=== PATIENT | female | born 1980 | race Caucasian/White ===

== ENCOUNTER → 2016-10-24 | Outpatient (CLI) | payer BC ==
--- NOTE | 2016-10-24 22:36 | US ---
EXAMINATION TYPE: US thyroid st tissue head/neck DATE OF EXAM: 10/24/2016 4:38 PM COMPARISON: 11/14/2015 CLINICAL HISTORY: 35-year-old female E04.1 Thyroid Nodule. FOLLOW UP TECHNIQUE: Multiple sonographic images of the thyroid gland were obtained. FINDINGS: GLAND SIZE: Right Lobe: 4.8 x 1.3 x 1.3 cm Left Lobe: 4.6 x 1.5 x 1.4 cm Isthmus Thickness: 0.3 cm NODULES RIGHT: # of nodules measured on right: 3 1. 0.7 X 0.4 x 0.4 cm cystic nodule with internal echogenic focus suggestive of a colloid cyst at t he upper pole with well-defined margins; . This nodule is wider than tall and shows no intranodular vascularity. Prior size: 0.7 x 0.5 x 0.4 cm 2. 0.3 X 0.3 x 0.2 cm probable spongiform nodule at the mid pole with well-defined margins; . This nodule is wider than tall and shows intranodular vascularity. Prior size: 0.3 x 0.3 x 0.3 cm 3. 0.4 X 0.3 x 0.3 cm mixed nodule at the lower pole with well-defined margins; . This nodule is wi suri than tall and shows intranodular vascularity. Prior size: 0.4 x 0.3 x 0.3 cm LEFT: # of nodules measured on left: 2 1. 1.5 X 1.1 x 1.0 cm primarily cystic nodule with internal echogenic foci at the mid pole with wel l-defined margins; . This nodule is round and shows peripheral vascularity. Prior size: 1.3 x 1.1 x 1.0 cm 2. 1.1 X 1.1 x 1.4 cm heterogeneous solid nodule possibly part of or just adjacent to the above-ment ioned complex cystic nodule at the mid/inferior pole with well-defined margins; . This nodule shows intranodular vascularity. Prior size: 1.0 x 1.2 x 1.3 cm ISTHMUS: # of nodules measured in the isthmus: 0 IMPRESSION: Overall stable exam with 3 nodules on the right and 2 nodules on the left. The dominant solid nodule in the left lower pole measures 1.4 x 1.1 cm versus 1.3 x 1.2 cm, previously, not significantly kumar ed.
== END | disposition home or self-care (01) ==
LOC: RADUSWWP 15:42
PROVIDERS: ATTEND Internal Medicine Endocrinology, Diabetes & Metabolism
DX: E04.2 Nontoxic multinodular goiter (principal)
CPT/HCPCS: 76536; 84443

== ENCOUNTER → 2016-10-24 | Outpatient (CLI) | payer BC ==
--- NOTE | 2016-10-25 11:08 | MM ---
Reason for exam: screening (asymptomatic). Baseline mammogram. History: Family history of breast cancer in mother at age 54 and breast cancer in grandmother at age 82. Taking hormonal contraceptives for 12 years. Physical Findings: Nurse did not find any significant physical abnormalities on exam. MG 3D Screening Mammo W/Cad Bilateral CC and MLO view(s) were taken. No persisting abnormality on tomosynthesis images regional round and punctate calcifications anterior left breast are benign. ASSESSMENT: Negative, BI-RAD 1 RECOMMENDATION: Routine screening mammogram of both breasts at age 40. Unless clinical indication to start sooner.
== END | disposition home or self-care (01) ==
LOC: RADMAMWWP 15:45
PROVIDERS: ATTEND Obstetrics & Gynecology
DX: Z12.31 Encounter for screening mammogram for malignant neoplasm of breast (principal)
CPT/HCPCS: 77063; G0202

== ENCOUNTER → 2018-10-21 | Outpatient (CLI) | payer BC ==
--- NOTE | 2018-10-21 13:54 | US ---
EXAMINATION TYPE: US thyroid st tissue head/neck DATE OF EXAM: 10/21/2018 COMPARISON: US CLINICAL HISTORY: E04.2 thyroid nodule-compare to previous. F/U GLAND SIZE: Right Lobe: 4.3 x 1.5 x 1.2 cm Overall Parenchyma: homogenous Left Lobe: 4.6 x 1.6 x 1.6 cm Overall Parenchyma: homogeneous Isthmus Thickness: 0.3 cm NODULES RIGHT: # of nodules measured on right: 3 1. 0.9 X 0.5 x 0.5 cm cystic nodule at the upper pole with well-defined margins; This nodule is w ider than tall and shows no intranodular vascularity. Prior size: 0.7 x 0.4 x 0.4 cm 2. 0.3 X 0.3 x 0.2 cm hypoechoic solid nodule at the mid pole with well-defined margins; This nodul e is wider than tall and shows intranodular vascularity. Prior size: 0.3 x 0.3 x 0.2 cm 3. 0.5 X 0.5 x 0.5 cm isoechoic solid nodule at the lower pole with poorly defined margins; This no dule is wider than tall and shows intranodular vascularity. Prior size: 0.4 x 0.3 x 0.3 cm LEFT: # of nodules measured on left: 1 1. 2.0 X 1.3 x 1.4 cm mixed nodule at the mid pole with well-defined margins; This nodule is wide r than tall and shows intranodular vascularity. Prior size: 2.7 x 1.5 x 1.7 cm This measurement more accurate on 2014 scan than most recent on 2017 scan Bilateral neck scanned, no evidence of lymphadenopathy. Stable nodules on right thyroid and tech felt stable nodule on left when compared to 2014 scan. IMPRESSION: Stable nonspecific nodularity.
== END | disposition home or self-care (01) ==
LOC: RADUSWWP 12:52
PROVIDERS: ATTEND Internal Medicine Endocrinology, Diabetes & Metabolism
DX: E04.2 Nontoxic multinodular goiter (principal)
CPT/HCPCS: 76536; 84443; 86376

== ENCOUNTER → 2020-04-24 | Outpatient (CLI) | payer BC ==
--- NOTE | 2020-04-25 06:54 | US ---
EXAMINATION TYPE: US thyroid st tissue head/neck DATE OF EXAM: 04/24/2020 COMPARISON: US 10/21/2018 CLINICAL HISTORY: E04.1 SINGLE THYROID NODULE. GLAND SIZE: Right Lobe: 4.6 x 1.5 x 1.4 cm Overall Parenchyma: homogenous Left Lobe: 4.9 x 1.7 x 1.6 cm Overall Parenchyma: homogeneous Isthmus Thickness: 0.3 cm NODULES RIGHT: # of nodules measured on right: 2 1. 0.5 X 0.3 x 0.3 cm hypoechoic mixed nodule at the lower pole with well-defined margins; . This nodule is wider than tall and shows intranodular vascularity. Prior size: 0.4 x0.3 x 0.3 cm 2. 1.0 X 0.5 x 0.5 cm hypoechoic cystic nodule at the mid pole with well-defined margins; . This no dule is wider than tall and shows no intranodular vascularity. Prior size: 0.9 x 0.5 x 0.5 cm LEFT: # of nodules measured on left: 1 1. 3.2 X 1.5 x 1.5 cm hypoechoic mixed nodule at the mid pole with well-defined margins; . This no dule is wider than tall and shows intranodular vascularity. Prior size: 2.0 x 1.3 x 1.4 cm ISTHMUS: # of nodules measured in the isthmus: 0 Bilateral neck scanned, no evidence of lymphadenopathy. IMPRESSION: Nonspecific thyroid nodularity seen bilaterally. Enlarging nodule left thyroid lobe.
== END | disposition home or self-care (01) ==
LOC: RADUSWWP 16:12
PROVIDERS: ATTEND Internal Medicine Geriatric Medicine
DX: E04.2 Nontoxic multinodular goiter (principal)
CPT/HCPCS: 76536

== ENCOUNTER → 2020-04-26 | Outpatient (CLI) | payer BC ==
[2020-04-26 08:02] LABS: Basophils % (A) 1 %; Eosinophils # (A) 0.2 k/uL (0-0.7); Eosinophils % (A) 3 %; HCT 43.4 % (34.0-46.0); HGB 14.2 gm/dL (11.4-16.0); Lymphocytes # (A) 2.1 k/uL (1.0-4.8); Lymphocytes % (A) 33 %; MCH 31.3 pg (25.0-35.0); MCHC 32.8 g/dL (31.0-37.0); MCV 95.5 fL (80.0-100.0); Mean Platelet Volume 7.7; Monocytes # (A) 0.3 k/uL (0-1.0); Monocytes % (A) 5 %; Neutrophils # (A) 3.7 k/uL (1.3-7.7); Neutrophils % (A) 58 %; Platelet Count 221 k/uL (150-450); RBC 4.55 m/uL (3.80-5.40); RDW 12.4 % (11.5-15.5); WBC 6.4 k/uL (3.8-10.6)
[2020-04-26 12:37] LABS: African American GFR (CKD) 107.6 (60.0-200.0); Albumin 4.3 g/dL (3.80-4.90); Albumin/Globulin Ratio 2.39 (1.60-3.17); Anion Gap 5.9 mmol/L (4.00-12.00); BUN/Creat Ratio 21.25 Ratio (12.00-20.00); Calcium 9.4 mg/dL (8.7-10.3); Carbon Dioxide 26.1 mmol/L (21.6-31.8); Chol/HDL Ratio 2.52; Globulin 1.8 g/dL (1.6-3.3); LDL Cholesterol,Calculated 81.2 mg/dL (0.0-131.0); Non-African American GFR(CKD) 92.9 (60.0-200.0); Potassium 4.1 mmol/L (3.5-5.5); Total Bilirubin 0.7 mg/dL (0.3-1.2); Total Protein 6.1 g/dL (6.2-8.2); VLDL Calculation 18.8 mg/dL (5.00-40.00)
[2020-04-26 12:45] LABS: T4, Free (Free Thyroxine) 1.2 ng/dL (0.80-1.80)
== END | disposition home or self-care (01) ==
LOC: LABWHC1 07:08
PROVIDERS: ATTEND Internal Medicine Geriatric Medicine
DX: E78.5 Hyperlipidemia, unspecified (principal); E04.1 Nontoxic single thyroid nodule
CPT/HCPCS: 36415; 80053; 80061; 84439; 84443; 85025

== ENCOUNTER → 2021-05-22 | Outpatient (CLI) | payer BC ==
--- NOTE | 2021-05-23 10:29 | MM ---
Reason for exam: screening (asymptomatic). Last mammogram was performed 4 years and 7 months ago. History: Family history of breast cancer in mother at age 54 and breast cancer in grandmother at age 82. Taking hormonal contraceptives for 12 years. Physical Findings: A clinical breast exam by your physician is recommended on an annual basis and results should be correlated with mammographic findings. MG 3D Screening Mammo W/Cad Bilateral CC and MLO view(s) were taken. Prior study comparison: October 24, 2016, bilateral MG 3d screening mammo w/cad. The breast tissue is heterogeneously dense. This may lower the sensitivity of mammography. There is no discrete abnormality. No significant changes when compared with prior studies. ASSESSMENT: Negative, BI-RAD 1 RECOMMENDATION: Routine screening mammogram of both breasts in 1 year.
== END | disposition home or self-care (01) ==
LOC: RADMAMWWP 09:58
PROVIDERS: ATTEND Obstetrics & Gynecology
DX: Z12.31 Encounter for screening mammogram for malignant neoplasm of breast (principal); Z80.3 Family history of malignant neoplasm of breast
CPT/HCPCS: 77063; 77067

== ENCOUNTER → 2022-04-02 | Outpatient (CLI) | payer BC ==
--- NOTE | 2022-04-02 20:35 | US ---
EXAMINATION TYPE: US thyroid st tissue head/neck DATE OF EXAM: 04/02/2022 COMPARISON: US 03/2020 CLINICAL HISTORY: E04.1 THYROID NODULE. THYROID NODULES GLAND SIZE: Right Lobe: 4.4 x 1.6 x 1.3cm Overall Parenchyma: homogenous Left Lobe: 4.9 x 1.8 x 1.5cm Overall Parenchyma: homogeneous Isthmus Thickness: 0.2cm NODULES RIGHT: # of nodules measured on right: 1 1. 0.5 x 0.4 x 0.3cm, lower medial, spongiform, hypoechoic nodule, which is taller than wide, with s mooth margins, without echogenic foci. PREVIOUS NODULE MEASURED IS NO LONGER PRESENT ON TODAY'S EXAM LEFT: # of nodules measured on left: 1 1. 2.4 x 1.3x 1.3cm mid , predominantly cystic, anechoic nodule, which is wider than tall, with ill- defined margins, with echogenic foci. Prior size: 3.2 x 1.5 x 1.5cm ISTHMUS: # of nodules measured in the isthmus: 0 Bilateral neck scanned, no evidence of lymphadenopathy. Homogeneous normal-sized thyroid with stable 2.4 cm mixed solid and cystic left thyroid nodule. Large st 1.0 cm cystic nodule right thyroid lobe prior study is not clearly seen on current study IMPRESSION: As above. No new or enlarging suspicious solid nodules identified.
== END | disposition home or self-care (01) ==
LOC: RADUSWWP 15:45
PROVIDERS: ATTEND Internal Medicine Geriatric Medicine
DX: E04.2 Nontoxic multinodular goiter (principal)
CPT/HCPCS: 76536

== ENCOUNTER 2022-12-30 05:08 | Emergency (ER) | payer BC ==
[2022-12-30 05:24] VITALS: BP 144/88; PULSE 75; RESP 19; TEMP 97.8
[2022-12-30] MEDS ORDERED: IBUPROFEN 600 MG TAB PO STA (06:17)
[2022-12-30] MEDS ORDERED: AMOXIC-POT CLAV 875-125MG 1 EACH TAB PO STA (06:17)
[2022-12-30] MEDS ORDERED: ACET/COD 300 MG/30 MG STARTER PACK 6 TAB BTL PO STA (06:22)
--- NOTE | 2022-12-30 06:24 | ED ---
Animal Bite HPI - General Chief Complaint: Animal Bite Stated Complaint: Swollen right hand - animal bite Time Seen by Provider: 12/30/22 05:56 Source: patient, RN notes reviewed Mode of arrival: ambulatory Limitations: no limitations - History of Present Illness Initial Comments: This is a 42-year-old female who presents to the emergency department for a cat bite. States that she was trying to help her neighbors out by bringing their cat in from outside. The cat subsequently bit her right hand and scratched her right calf. She is not experiencing any pain or swelling to the right calf. She does have a bite to the back of her right hand that is concerning her the most. When she woke up this morning, she said it was red, swollen, and painful. Her tetanus vaccine is up-to-date. States that this is an indoor cat and she is not entirely positive if it is up-to-date on its rabies vaccines, but believes that it is and it is an indoor cat. She is still trying to reach her neighbors to verify this information. Denies any fevers or chills. She has not noticed any redness or swelling going up the arm. She is still able to fully move the hand and fingers. Denies any fevers, chills, sore throat, cough, dyspnea, chest pain, palpitations, abdominal pain, nausea, vomiting, diarrhea, back pain, or headaches. Complaint: animal bite Onset/Timin -: days(s) Right: Hand Animal: cat Description: household pet Mechanism: bite, scratch Associated Symptoms: erythema - Related Data Patient Tetanus UTD: Yes Previous Rx's Medication Instructions Recorded Amoxic-Pot Clav 875-125Mg 1 tab PO Q12HR 10 Days #20 tab 12/30/22 [Augmentin 875-125] Ibuprofen 600 mg PO Q6H PRN #20 tab 12/30/22 Allergies Allergy/AdvReac Type Severity Reaction Status Date / Time No Known Allergies Allergy Verified 12/30/22 05:23 Review of Systems ROS Statement: Those systems with pertinent positive or pertinent negative responses have been documented in the HPI. ROS Other: All systems not noted in ROS Statement are negative. Past Medical History Past Medical History: No Reported History History of Any Multi-Drug Resistant Organisms: None Reported Past Surgical History: No Surgical Hx Reported Past Psychological History: No Psychological Hx Reported Smoking Status: Never smoker Past Alcohol Use History: None Reported Past Drug Use History: None Reported General Exam Limitations: no limitations General appearance: alert, in no apparent distress Head exam: Present: atraumatic, normocephalic, normal inspection Respiratory exam: Present: normal lung sounds bilaterally. Absent: respiratory distress, wheezes, rales, rhonchi, stridor Cardiovascular Exam: Present: regular rate, normal rhythm, normal heart sounds. Absent: systolic murmur, diastolic murmur, rubs, gallop, clicks Extremities exam: Present: other (2 puncture wounds near the right 3rd MCP joint. Erythema and swelling near MCP joints 2, 3, and 4. No areas of firmness to suggest a foreign body. There is no active bleeding. There is no tracking going up the arm or reaching the wrist. Full range of motion of the hand, wrist, and all 5 digits.) Neurological exam: Present: alert, oriented X3, CN II-XII intact Psychiatric exam: Present: normal affect, normal mood Skin exam: Present: other (2 superficial abrasions to the right calf. No surrounding erythema or swelling. No active bleeding.) Course Vital Signs 12/30/22 05:20 Temperature 97.8 F Pulse Rate 75 Respiratory 19 Rate Blood Pressure 144/88 O2 Sat by Pulse 100 Oximetry Medical Decision Making - Medical Decision Making This is a 42-year-old female who presents to the emergency department for a cat bite. Was pt. sent in by a medical professional or institution? @ -No Did you speak to anyone other than the patient for history? @ -No Did you review nursing and triage notes? @ -Yes, and I agree, it is accurate with regards to the patient's symptoms. Were old charts reviewed? @ -No Differential Diagnosis? @ -Not applicable What testing was considered but not performed? (CT, X-rays, U/S, labs)? Why? @ -None What meds were considered but not given? Why? @ -None Did you discuss the management of the patient with other professionals? @ -No Did you reconcile home meds? @ -No Was smoking cessation discussed for >3mins.? @ -No Was critical care preformed (if so, how long)? @ -No Were there social determinants of health that impacted care today? How? (Homelessness, low income, unemployed, alcoholism, drug addiction, transportation, low edu. Level, literacy, decrease access to med. care, long-term, rehab)? @ -No Was there de-escalation of care discussed even if they declined? (Discuss DNR or withdrawal of care, Hospice)? @ -No What co-morbidities impacted this encounter? (DM, HTN, Smoking, COPD, CAD, Cancer, CVA, Hep., AIDS, mental health diagnosis, sleep apnea, morbid obesity)? @ -None Was patient admitted / discharged? @ -Discharged. The bite to the hand is infected, as evidenced by the erythema and swelling. However, this is localized at this time around the right MCP joints. The scratches to the right calf have no surrounding erythema, swelling, or drainage. Patient also has no fevers or tachycardia to suggest systemic involvement. Discussed with the patient, that we can start with outpatient management because the infection is localized and there is no evidence of systemic involvement. However, she needs to watch this very closely. I did outline the affected area with a marker. We discussed that if the redness and swelling start to go past the marked area or she develops any systemic symptoms such as a fever, she needs to return to the emergency department immediately. I did also offer the rabies vaccine, however she declined at this time. Advised she get in contact with her neighbors to verify whether or not the cat is vaccinated. If it is not vaccinated, she should either return to the emergency department or contact her primary care provider to receive the rabies vaccine. Prescription for Augmentin and ibuprofen provided with dosing instructions reviewed. She was given the first dose of Augmentin in the emergency department. Again, very strict return parameters were discussed. Patient expresses understanding. Undiagnosed new problem with uncertain prognosis? @ -None Drug Therapy requiring intensive monitoring for toxicity (Heparin, Nitro, Insulin, Cardizem)? @ -None Were any procedures done? @ -None Diagnosis/symptom? @ -Cat bite Acute, or Chronic, or Acute on Chronic? @ -Acute Uncomplicated (without systemic symptoms) or Complicated (systemic symptoms)? @ -Uncomplicated Side effects of treatment? @ -None Exacerbation, Progression, or Severe Exacerbation] @ -Not applicable Poses a threat to life or bodily function? @ -If the infection progresses, it can become a limb threatening issue. Return precautions reviewed in depth, the patient is instructed to return to the emergency department with any new, worsening, or concerning symptoms. Patient verbalized understanding. This case was discussed in detail with the attending ED physician, Dr. Bell. Presentation, findings, and treatment plan discussed in detail as well. Disposition Clinical Impression: Cat bite Disposition: HOME SELF-CARE Instructions (If sedation given, give patient instructions): Animal Bite (ED) Additional Instructions: Return to the emergency department with any new, worsening, or concerning symptoms. Pay very close attention to the marked line. If the redness and swelling starts to travel past this line or you develop any fevers/chills, return to the emergency department immediately. Take the antibiotic as prescribed for 10 days, with your second dose beginning this evening around 6-7 PM. Alternate with ibuprofen and Tylenol as needed for pain relief. Follow up with your primary care provider in 1-2 days. Prescriptions: Amoxic-Pot Clav 875-125Mg [Augmentin 875-125] 1 tab PO Q12HR 10 Days #20 tab Ibuprofen 600 mg PO Q6H PRN #20 tab PRN Reason: Pain Is patient prescribed a controlled substance at d/c from ED?: No Referrals: Edwin Christian MD [Primary Care Provider] - 1-2 days
== END 2022-12-30 06:33 | disposition home or self-care (01) ==
LOC: EC 05:08
DX: S61.451A Open bite of right hand, initial encounter (principal); S80.811A Abrasion, right lower leg, initial encounter; W55.01XA Bitten by cat, initial encounter
CPT/HCPCS: 99283

== ENCOUNTER 2022-12-30 09:17 | Inpatient (IN) | payer BC ==
[2022-12-30] MEDS ORDERED: KETOROLAC 15 MG/ML 1 ML VIAL IVP STA (09:38)
[2022-12-30] MEDS ORDERED: SODIUM CHLORIDE 0.9% 1,000 ML IV STA (09:39)
--- NOTE | 2022-12-30 10:01 | ED ---
Recheck HPI - General Chief Complaint: Recheck/Abnormal Lab/Rx Stated Complaint: Rt hand cat bite Time Seen by Provider: 12/30/22 09:20 Source: patient, RN notes reviewed Mode of arrival: ambulatory Limitations: no limitations - History of Present Illness Initial Comments: This is a 42-year-old female who presents to the emergency department for a cat bite to the right hand. I evaluated the patient earlier this morning shortly after 6 AM. The swelling was localized to the MCP joints on the right hand at that time and she was discharged home on a course of Augmentin. At this point, she has taken one dose of Augmentin. She returns to the emergency department, because the swelling and pain have progressed. Denies any fevers or chills. Denies any fevers, chills, sore throat, cough, dyspnea, chest pain, palpitations, abdominal pain, nausea, vomiting, diarrhea, back pain, or headaches. MD Complaint: other (Recheck cat bite) - Related Data Home Medications Medication Instructions Recorded Confirmed Amoxic-Pot Clav 875-125Mg 1 tab PO Q12H 12/30/22 12/30/22 [Augmentin 875-125] Cetirizine HCl [Zyrtec] 10 mg PO DAILY 12/30/22 12/30/22 SUMAtriptan succinate [Imitrex] 25 mg PO BID PRN 12/30/22 12/30/22 norethindrone-e.estradioL-iron 1 tab PO HS 12/30/22 12/30/22 [Tamika 24 Fe 1 mg-20 Mcg Tablet] Previous Rx's Medication Instructions Recorded Ibuprofen 600 mg PO Q6H PRN #20 tab 12/30/22 Allergies Allergy/AdvReac Type Severity Reaction Status Date / Time No Known Allergies Allergy Verified 12/30/22 11:22 Review of Systems ROS Statement: Those systems with pertinent positive or pertinent negative responses have been documented in the HPI. ROS Other: All systems not noted in ROS Statement are negative. Past Medical History Past Medical History: No Reported History History of Any Multi-Drug Resistant Organisms: None Reported Past Surgical History: No Surgical Hx Reported Past Psychological History: No Psychological Hx Reported Smoking Status: Never smoker Past Alcohol Use History: None Reported Past Drug Use History: None Reported General Exam Limitations: no limitations General appearance: alert, in no apparent distress Head exam: Present: atraumatic, normocephalic, normal inspection Respiratory exam: Present: normal lung sounds bilaterally. Absent: respiratory distress, wheezes, rales, rhonchi, stridor Cardiovascular Exam: Present: regular rate, normal rhythm, normal heart sounds. Absent: systolic murmur, diastolic murmur, rubs, gallop, clicks Extremities exam: Present: other (Swelling and erythema over the second, third, and fourth MCP joints to the right hand. There is swelling progressing up to the wrist. Limited range of motion of all 5 digits secondary to pain and swelling.) Neurological exam: Present: alert, oriented X3, CN II-XII intact Psychiatric exam: Present: normal affect, normal mood Skin exam: Present: warm, dry, intact, normal color. Absent: rash Course Vital Signs 12/30/22 12/30/22 09:28 14:32 Temperature 98.2 F Pulse Rate 81 83 Respiratory 20 16 Rate Blood Pressure 165/89 141/81 O2 Sat by Pulse 100 97 Oximetry Medical Decision Making - Medical Decision Making This is a 42-year-old female who presents to the emergency department for a cat bite to the right hand. Was pt. sent in by a medical professional or institution? @ -No Did you speak to anyone other than the patient for history? @ -No Did you review nursing and triage notes? @ -Yes, and I agree, it is accurate with regards to the patient's symptoms. Were old charts reviewed? @ -No Differential Diagnosis? @ -Not applicable X-rays interpreted by me (1pt min.)? @ -X-ray of the right hand obtained. My interpretation identifies swelling to the dorsal aspect of the right hand. There are no obvious fractures or foreign bodies. What testing was considered but not performed? (CT, X-rays, U/S, labs)? Why? @ -None What meds were considered but not given? Why? @ -None Did you discuss the management of the patient with other professionals? @ -Yes, Dr. Sutton with [facility] who accepts the patient for admission. Did you reconcile home meds? @ -Yes Was smoking cessation discussed for >3mins.? @ -No Was critical care preformed (if so, how long)? @ -No Were there social determinants of health that impacted care today? How? (Homelessness, low income, unemployed, alcoholism, drug addiction, transportation, low edu. Level, literacy, decrease access to med. care, long-term, rehab)? @ -No Was there de-escalation of care discussed even if they declined? (Discuss DNR or withdrawal of care, Hospice)? @ -No What co-morbidities impacted this encounter? (DM, HTN, Smoking, COPD, CAD, Cancer, CVA, Hep., AIDS, mental health diagnosis, sleep apnea, morbid obesity)? @ -None Was patient admitted / discharged? @ -Admitted. Lab work obtained revealing leukocytosis and elevated inflammatory markers and lactic acid. X-ray of the right hand obtained revealing notable swelling to the dorsal aspect of the right hand. Blood cultures were obtained. The swelling does appear to have progressed since her visit at 6 AM earlier today. She was given a dose of Zosyn in the emergency department. We discussed the option of admission versus discharge home with strict return parameters again. Patient requests to proceed with admission. Patient admitted to medicine with consult placed for orthopedics and infectious disease per the admitting team's request. Patient also started on Unasyn for infectious management. Undiagnosed new problem with uncertain prognosis? @ -None Drug Therapy requiring intensive monitoring for toxicity (Heparin, Nitro, Insulin, Cardizem)? @ -None Were any procedures done? @ -None Diagnosis/symptom? @ -Cat bite to right hand Acute, or Chronic, or Acute on Chronic? @ -Acute Uncomplicated (without systemic symptoms) or Complicated (systemic symptoms)? @ -Complicated Side effects of treatment? @ -None Exacerbation, Progression, or Severe Exacerbation] @ -Not applicable Poses a threat to life or bodily function? @ -Yes This case was discussed in detail with the attending ED physician, Dr. Juarez. Presentation, findings, and treatment plan discussed in detail as well. - Lab Data Result diagrams: 12/30/22 10:38 12/30/22 09:48 Lab Results 12/30/22 12/30/22 12/30/22 Range/Units 09:48 09:48 10:38 WBC 13.5 H (3.8-10.6) k/uL RBC 4.50 (3.80-5.40) m/uL Hgb 14.4 (11.4-16.0) gm/dL Hct 41.3 (34.0-46.0) % MCV 91.7 (80.0-100.0) fL MCH 32.0 (25.0-35.0) pg MCHC 34.9 (31.0-37.0) g/dL RDW 12.6 (11.5-15.5) % Plt Count 172 (150-450) k/uL MPV 8.5 Neutrophils % 88 % Lymphocytes % 7 % Monocytes % 4 % Eosinophils % 1 % Basophils % 0 % Neutrophils # 11.9 H (1.3-7.7) k/uL Lymphocytes # 0.9 L (1.0-4.8) k/uL Monocytes # 0.5 (0-1.0) k/uL Eosinophils # 0.1 (0-0.7) k/uL Basophils # 0.0 (0-0.2) k/uL ESR 6 (0-20) mm/hr Sodium 139 (137-145) mmol/L Potassium 4.1 (3.5-5.1) mmol/L Chloride 106 (98-107) mmol/L Carbon Dioxide 19 L (22-30) mmol/L Anion Gap 14 mmol/L BUN 11 (7-17) mg/dL Creatinine 0.69 (0.52-1.04) mg/dL Est GFR (CKD-EPI)AfAm >90 (>60 ml/min/1.73 sqM) Est GFR (CKD-EPI)NonAf >90 (>60 ml/min/1.73 sqM) Glucose 98 (74-99) mg/dL Lactic Ac Sepsis Rflx Plasma Lactic Acid Bret 2.2 H* (0.7-2.0) mmol/L Calcium 9.5 (8.4-10.2) mg/dL Total Bilirubin 0.8 (0.2-1.3) mg/dL AST 27 (14-36) U/L ALT 21 (4-34) U/L Alkaline Phosphatase 46 (38-126) U/L C-Reactive Protein 2.3 H (<1.0) mg/dL Total Protein 7.5 (6.3-8.2) g/dL Albumin 4.6 (3.5-5.0) g/dL 12/30/22 Range/Units 10:45 WBC (3.8-10.6) k/uL RBC (3.80-5.40) m/uL Hgb (11.4-16.0) gm/dL Hct (34.0-46.0) % MCV (80.0-100.0) fL MCH (25.0-35.0) pg MCHC (31.0-37.0) g/dL RDW (11.5-15.5) % Plt Count (150-450) k/uL MPV Neutrophils % % Lymphocytes % % Monocytes % % Eosinophils % % Basophils % % Neutrophils # (1.3-7.7) k/uL Lymphocytes # (1.0-4.8) k/uL Monocytes # (0-1.0) k/uL Eosinophils # (0-0.7) k/uL Basophils # (0-0.2) k/uL ESR (0-20) mm/hr Sodium (137-145) mmol/L Potassium (3.5-5.1) mmol/L Chloride (98-107) mmol/L Carbon Dioxide (22-30) mmol/L Anion Gap mmol/L BUN (7-17) mg/dL Creatinine (0.52-1.04) mg/dL Est GFR (CKD-EPI)AfAm (>60 ml/min/1.73 sqM) Est GFR (CKD-EPI)NonAf (>60 ml/min/1.73 sqM) Glucose (74-99) mg/dL Lactic Ac Sepsis Rflx Y Plasma Lactic Acid Bret (0.7-2.0) mmol/L Calcium (8.4-10.2) mg/dL Total Bilirubin (0.2-1.3) mg/dL AST (14-36) U/L ALT (4-34) U/L Alkaline Phosphatase (38-126) U/L C-Reactive Protein (<1.0) mg/dL Total Protein (6.3-8.2) g/dL Albumin (3.5-5.0) g/dL - Radiology Data Radiology results: report reviewed, image reviewed Disposition Clinical Impression: Cat bite of right hand Disposition: ADMITTED IP TO THIS HOSP
--- NOTE | 2022-12-30 10:27 | XR ---
EXAMINATION TYPE: XR hand complete RT DATE OF EXAM: 12/30/2022 COMPARISON: NONE HISTORY: 42-year-old female with cat bite TECHNIQUE: 3 views FINDINGS: Prominent dorsal sided soft tissue swelling. No retained radiopaque foreign body. No acute fracture, subluxation, or dislocation. IMPRESSION: Prominent dorsal sided soft tissue swelling. No acute osseous abnormality seen.
[2022-12-30 10:28] LABS: ALT 21 U/L (4-34); AST 27 U/L (14-36); African American GFR (CKD) >90 (>60 ml/min/1.73 sqM); Albumin 4.6 g/dL (3.5-5.0); Alkaline Phosphatase 46 U/L (38-126); Anion Gap 14 mmol/L; Blood Urea Nitrogen 11 mg/dL (7-17); Calcium 9.5 mg/dL (8.4-10.2); Carbon Dioxide 19 mmol/L (22-30); Chloride 106 mmol/L (98-107); Glucose 98 mg/dL (74-99); Non-African American GFR(CKD) >90 (>60 ml/min/1.73 sqM); Potassium 4.1 mmol/L (3.5-5.1); Sodium 139 mmol/L (137-145); Total Bilirubin 0.8 mg/dL (0.2-1.3); Total Protein 7.5 g/dL (6.3-8.2)
[2022-12-30 10:42] LABS: C Reactive Protein 2.3 mg/dL (<1.0)
[2022-12-30 10:49] LABS: Basophils % (A) 0 %; Eosinophils # (A) 0.1 k/uL (0-0.7); Eosinophils % (A) 1 %; HCT 41.3 % (34.0-46.0); HGB 14.4 gm/dL (11.4-16.0); Lymphocytes # (A) 0.9 k/uL (1.0-4.8); Lymphocytes % (A) 7 %; MCHC 34.9 g/dL (31.0-37.0); MCV 91.7 fL (80.0-100.0); Mean Platelet Volume 8.5; Monocytes # (A) 0.5 k/uL (0-1.0); Monocytes % (A) 4 %; Neutrophils # (A) 11.9 k/uL (1.3-7.7); Neutrophils % (A) 88 %; Platelet Count 172 k/uL (150-450); RDW 12.6 % (11.5-15.5); WBC 13.5 k/uL (3.8-10.6)
[2022-12-30] MEDS ORDERED: PIPERACILLIN-TAZOBACTAM 3.375 GM in SODIUM CHLORIDE 0.9% 100 ML IVPB STA (10:58)
[2022-12-30 14:28] LABS: Erythrocyte Sedimentation Rate 6 mm/hr (0-20)
[2022-12-30] MEDS ORDERED: MORPHINE SULFATE 2 MG/ML SYRINGE IV PRN (14:47)
[2022-12-30] MEDS ORDERED: ONDANSETRON 4 MG/2 ML VIAL IVP PRN (14:47)
[2022-12-30] MEDS ORDERED: HYDROcodone/APAP 5-325MG 1 EACH TAB PO PRN (14:47)
[2022-12-30] MEDS ORDERED: NALOXONE 0.4 MG/ML 1 ML VIAL IV PRN (14:47)
[2022-12-30] MEDS ORDERED: ACETAMINOPHEN TAB 325 MG TAB PO PRN (14:47)
[2022-12-30] MEDS ORDERED: PIPERACILLIN-TAZOBACTAM 3.375 GM in SODIUM CHLORIDE 0.9% 100 ML IVPB SCH (16:00)
--- NOTE | 2022-12-30 16:49 | P.CNOR ---
History of Present Illness - [facility] Consult date: 12/30/22 Consult reason: other (Right hand cat bite) History of present illness: The patient is a 42 y/o previously healthy female who presents to the emergency department for a cat bite to the right hand. She states that she was trying to help her neighbors out by bringing their cat in from outside yesterday. The cat bit her right hand and scratched her right calf. She came the ER last night and was sent home with oral antibiotics. The patient woke up this morning and noticed increased swelling and redness in the hand. She decided to come back to the ER for reevaluation. She is being admitted for IV antibiotics and orthopedic evaluation. Infectious disease has been consulted as well. She denies fever and chills. There is swelling and warmth to the hand. No drainage or purulence. Review of Systems Constitutional: Denies chills, Denies fatigue, Denies fever Cardiovascular: Denies chest pain, Denies shortness of breath Respiratory: Denies cough Gastrointestinal: Denies diarrhea, Denies nausea, Denies vomiting Musculoskeletal: right: hand pain, hand stiffness, hand swelling Past Medical History Past Medical History: No Reported History History of Any Multi-Drug Resistant Organisms: None Reported Past Surgical History: No Surgical Hx Reported Past Psychological History: No Psychological Hx Reported Smoking Status: Never smoker Past Alcohol Use History: None Reported Past Drug Use History: None Reported Medications and Allergies Home Medications Medication Instructions Recorded Confirmed Type Amoxic-Pot Clav 875-125Mg 1 tab PO Q12H 12/30/22 12/30/22 History [Augmentin 875-125] Cetirizine HCl [Zyrtec] 10 mg PO DAILY 12/30/22 12/30/22 History Ibuprofen 600 mg PO Q6H PRN #20 tab 12/30/22 12/30/22 Rx SUMAtriptan succinate [Imitrex] 25 mg PO BID PRN 12/30/22 12/30/22 History norethindrone-e.estradioL-iron 1 tab PO HS 12/30/22 12/30/22 History [Tamika 24 Fe 1 mg-20 Mcg Tablet] Allergies Allergy/AdvReac Type Severity Reaction Status Date / Time No Known Allergies Allergy Verified 12/30/22 11:22 Physical Examination The patient is a 42 y/o female in no acute distress. She is alerted and oriented x3. Exam of the right hand reveals swelling and erythema to the dorsal aspect of the hand, worse in the area of the right middle finger MP joint. There are bite madrid to the radial and ulnar aspect of the right middle finger MP joint. There are other smaller areas of bites and scratches there appear benign at this time. There is stiffness to the fingers and mild tenderness to the dorsum of the hand. No drainage or fluctuance/fluid collection noted. No abscess suspected. No proximal red streaking. There is an area marked previously and her erythema has receded since the area was marked. Neurological and circulatory status is intact. Results x-rays of the right hand reveal soft tissue swelling to the dorsal aspect of the hand. - Labs Labs: Abnormal Lab Results - Last 24 Hours (Table) 12/30/22 12/30/22 12/30/22 Range/Units 09:48 09:48 10:38 WBC 13.5 H (3.8-10.6) k/uL Neutrophils # 11.9 H (1.3-7.7) k/uL Lymphocytes # 0.9 L (1.0-4.8) k/uL Carbon Dioxide 19 L (22-30) mmol/L Plasma Lactic Acid Bret 2.2 H* (0.7-2.0) mmol/L C-Reactive Protein 2.3 H (<1.0) mg/dL H & H 12/30/22 Range/Units 10:38 Hgb 14.4 (11.4-16.0) gm/dL Hct 41.3 (34.0-46.0) % Result Diagrams: 12/30/22 10:38 12/30/22 09:48 Assessment and Plan (1) Cat bite of right hand Current Visit: Yes Status: Acute Code(s): S61.451A - OPEN BITE OF RIGHT HAND, INITIAL ENCOUNTER; W55.01XA - BITTEN BY CAT, INITIAL ENCOUNTER SNOMED Co de(s): [id number] Plan: The clinical and x-ray findings were discussed with the patient. The case was discussed with Dr. Marrero. She will continue IV antibiotics per internal medicine and infectious disease. No fluid collection was found and no surgical intervention is needed at this time. I encouraged gentle ROM of the fingers as tolerated. We will continue monitor the patient closely.
[2022-12-30] MEDS: AMPICILLIN-SULBACTAM 3 GM in SODIUM CHLORIDE 0.9% 100 ML IVPB SCH (19:16)
[2022-12-30] MEDS: IBUPROFEN 400 MG TAB PO PRN (19:22)
[2022-12-30] MEDS: NORETHINDRONE E ESTRADIOL IRON PO SCH (20:03)
[2022-12-30] MEDS: KETOROLAC 15 MG/ML 1 ML VIAL IVP PRN (22:58)
--- NOTE | 2022-12-30 23:35 | HP ---
HISTORY AND PHYSICAL CHIEF COMPLAINT: Cat bite. HISTORY OF PRESENT ILLNESS: This is a 42-year-old woman with a past medical history of no significant medical illness, was bitten by a neighbor's cat yesterday while the patient was trying to get the cat back. The bite was on the metacarpophalangeal area of the right hand. The patient had developed pain and swelling despite taking Augmentin. The patient came to [facility] and was admitted for further evaluation and treatment. There is no history of any fever, rigors, or chills at this time. The hand x-ray was unremarkable. PAST MEDICAL HISTORY: No significant cardiorespiratory illness. MEDICATIONS: Home medications are reviewed include Imitrex, doses and rest of medications noted. ALLERGIES: None. FAMILY HISTORY: No history of heart disease or strokes in the family. 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 No history of smoking or alcohol. REVIEW OF SYSTEMS: A 14-point review is negative except as mentioned earlier. PHYSICAL EXAMINATION: VITAL SIGNS: Pulse is 81, blood pressure 160/89, respirations 20. HEENT: Conjunctivae normal. NECK: No jugular venous distention. CARDIOVASCULAR: S1, S2. ABDOMEN: Soft, nontender. LEGS: No edema, no swelling. NERVOUS SYSTEM: No focal deficits. EXTREMITIES: Right hand, swelling and painful, limitation of movement of the 2nd, 3rd and 4th fingers present, tenderness and bite madrid present on the dorsum of the right middle hand. SKIN: As mentioned. LABORATORY DATA: Noted. WBC 13.5. ASSESSMENT: 1. Cat bite with severe infection cellulitis of the right hand. 2. Severe pain. 3. Failure of outpatient treatment. 4. Elevated lactic acid. RECOMMENDATIONS: This 42-year-old woman presented with multiple complex medical issues. At this time, I will recommend to continue the current management, continue symptomatic treatment. Otherwise, continue IV fluids, broad-spectrum IV antibiotics. Infectious Disease and orthopedic evaluations. Prognosis guarded. Further recommendations to follow. See orders for further details. MMODL / IJN: [id number] /
[2022-12-31] MEDS: AMPICILLIN-SULBACTAM 3 GM in SODIUM CHLORIDE 0.9% 100 ML IVPB SCH ×4 (00:47→20:44)
[2022-12-31 09:06] LABS: Basophils # (A) 0.03 X 10*3/uL (0.00-0.10); Basophils % (A) 0.3 %; Eosinophils # (A) 0.07 X 10*3/uL (0.04-0.35); Eosinophils % (A) 0.7 %; HGB 13.7 g/dL (12.0-15.0); Immature Grans, Automated 0.3 %; Lymphocytes # (A) 1.66 X 10*3/uL (0.90-5.00); Lymphocytes % (A) 15.9 %; MCH 30.9 pg (27.0-32.0); MCHC 32.6 g/dL (32.0-37.0); MCV 94.8 fL (80.0-97.0); Mean Platelet Volume 11.2 fL (9.5-12.2); Monocytes % (A) 6.7 %; NRBC Per 100 WBC 0 /100 WBCS (0.0-0.0); Neutrophils # (A) 7.94 X 10*3/uL (1.80-7.70); Neutrophils % (A) 76.1 %; Platelet Count 213 X 10*3/uL (140-440); RBC 4.43 X 10*6/uL (4.10-5.20); RDW 12.5 % (11.5-14.5); WBC 10.43 X 10*3/uL (4.50-10.00)
[2022-12-31] MEDS: LORATADINE 10 MG TAB PO SCH (09:07)
[2022-12-31] MEDS: KETOROLAC 15 MG/ML 1 ML VIAL IVP PRN (09:15)
[2022-12-31] MEDS: IBUPROFEN 400 MG TAB PO PRN (09:25)
[2022-12-31 09:27] LABS: African American GFR (CKD) 105.4 (60.0-200.0); Anion Gap 11.8 mmol/L (10.00-18.00); BUN/Creat Ratio 14.13 Ratio (12.00-20.00); Blood Urea Nitrogen 11.3 mg/dL (9.0-27.0); Calcium 8.9 mg/dL (8.7-10.3); Carbon Dioxide 23.2 mmol/L (20.0-27.5); Non-African American GFR(CKD) 90.9 (60.0-200.0); Potassium 4.1 mmol/L (3.5-5.5)
--- NOTE | 2022-12-31 11:43 | P.PN ---
Subjective Progress Note Date: 12/31/22 This patient is a 42-year-old female that orthopedic surgery is following for cellulitis of the right hand following a cat bite. Patient is examined bedside this morning. She states she believes her right hand pain is worse. She notes increased swelling and pain in the hand with radiation to the wrist. The patient is currently receiving IV Unasyn. Patient states she otherwise feels well and denies fevers, chills, nausea, vomiting. Objective - Vital Signs Vital signs: Vital Signs Temp 98.5 F 12/31/22 06:46 Pulse 66 12/31/22 06:46 Resp 16 12/31/22 06:46 BP 111/71 12/31/22 06:46 Pulse Ox 97 12/31/22 06:46 FiO2 Intake & Output 12/30/22 12/31/22 12/31/22 18:59 06:59 18:59 Intake Total 600 Balance 600 Weight 64.864 kg 64.864 kg Intake: Intake, IV Titration 100 Amount Ampicillin-Sulbactam 3 gm 100 In Sodium Chloride 0.9% 100 ml @ 200 mls/hr IVPB Q6H [facility] Rx#:[id number] Oral 500 Other: Voiding Method Toilet - Exam On examination, patient is sitting up in bed in no acute distress. She is alert and orientated 3. On inspection of the right hand, there is diffuse swelling and erythema to the dorsal aspect of the hand. There are 2 bite madrid at the dorsal right middle finger MCP joint. There is no drainage. There is no area of fluctuance or fluid collection noted on exam. There is swelling and stiffness into the fingers, although there is minimal pain with passive range of motion of the fingers and thumb. No pain with passive range of motion of the wrist or elbow. Neurological and circulatory status is intact. - Labs CBC & Chem 7: 12/31/22 04:04 12/31/22 04:04 Labs: Abnormal Lab Results - Last 24 Hours (Table) 12/31/22 Range/Units 04:04 WBC 10.43 H (4.50-10.00) X 10*3/uL Neutrophils # 7.94 H (1.80-7.70) X 10*3/uL Assessment and Plan Assessment: Right hand cellulitis status-post cat bite Plan: - Patient was discussed with Dr. Braaksma. Due to her worsening symptoms overnight, recommend CT scan of the right hand with contrast to rule-out abscess. - IV antibiotics per infectious disease. - Further recommendations following CT scan.
--- NOTE | 2022-12-31 12:00 | CT ---
EXAMINATION TYPE: CT hand RT w con CT DLP: 144.6 mGycm, Automated exposure control for dose reduction was used. DATE OF EXAM: 12/31/2022 11:50 AM COMPARISON: Right hand radiograph for 323 CLINICAL INDICATION:Female, 42 years old with history of cat bite; PHH, right hand pain and swelling following dog bite TECHNIQUE: Axial images were obtained of the right hand after the uneventful administration 100 cc of Isovue-300 intravenously. Additional coronal and sagittal reformatted images and soft tissue and whitley ne window were obtained for review. 3-D reconstruction was created on a separate workstation. FINDINGS: There is no evidence of fracture, subluxation, or dislocation. No osseous erosions. No sign ificant joint effusion identified. There is moderate soft tissue edema of the dorsum of the hand over lying the carpals and metacarpals without organized fluid collection. Vasculature appears patent. No focal muscular atrophy. No radiopaque foreign body identified. IMPRESSION: Moderate soft tissue edema of the dorsum of the hand without evidence of abscess. No radi opaque foreign body identified or osseous erosions. No acute fracture or dislocation.
[2022-12-31] MEDS: SUMAtriptan succinate 25 MG TAB PO PRN ×2 (13:12→21:33)
[2022-12-31] MEDS ORDERED: ALPRAZolam 0.25 MG TAB PO PRN (13:16)
[2022-12-31] MEDS ORDERED: HYDROmorphone 0.5 MG/0.5 ML SYRINGE IVP PRN (13:16)
--- NOTE | 2022-12-31 13:40 | P.PN ---
Progress Note - Text Progress Note Date: 12/31/22 The patient is presently admitted to with cellulitis to her hand following a cat bite. Orthopaedics was consulted in regards to her hand infection. 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 Our office's hand surgeon, Dr. Frank, is out of town for the week. I am a fellowship-trained total hip and knee surgeon and not a hand surgeon. Since the family has made the request for a hand surgeon I will sign off at this time. I would recommend consulting Dr. Nicholson, a fellowship trained hand surgeon for [facility]. If Dr. Nicholson is unavailable to see the patient, I would recommend transferring the patient to a facility where a hand surgeon is available. We will sign off at this time.
--- NOTE | 2022-12-31 14:02 | PN ---
PROGRESS NOTE DATE OF SERVICE: 12/31/2022 SUBJECTIVE: This 42-year-old woman was admitted with a cat bite on the right hand, had some increased swelling today. CAT scan of the hand showed soft tissue edema without any evidence of abscess. OBJECTIVE: VITAL SIGNS: Pulse is 66, blood pressure 111/70, respirations 16. CHEST: Clear to auscultation. CARDIOVASCULAR: S1, S2 muffled. ABDOMEN: Soft. EXTREMITIES: Right arm pain and swelling and tenderness with erythema extending up the arm also present. LABORATORY DATA: Noted. Lactic acid is normal. ASSESSMENT: 1. Cat bite with acute severe cellulitis of the right hand. 2. Severe pain. 3. Failure of outpatient treatment. 4. Elevated lactic acid, improved. RECOMMENDATIONS: Recommend to continue current management, continue symptomatic treatment. Continue with broad-spectrum IV antibiotics. Continue the cultures. Infectious Disease and Hand surgery/orthopedic evaluation. Guarded prognosis. Further recommendations to follow. MMODL / IJN: [id number] /
[2022-12-31] MEDS: PANTOPRAZOLE 40 MG/10 ML VIAL IVP SCH (14:48)
--- NOTE | 2022-12-31 17:17 | P.CNOR ---
History of Present Illness - [facility] Consult date: 12/31/22 Consult reason: other (Right hand cat bite) History of present illness: This is a 42-year-old female who presented to the emergency department initially with complaints of right hand swelling after she was bit on the dorsal aspect of her right hand by her neighbors cat on 12/29/2022. She was seen katy trinidad in the emergency department and was placed on oral antibiotics and sent home. She then returned the next day due to increased swelling and pain. She was admitted for IV antibiotics. She states that her swelling has gone down in the last 24 hours and she has noticed improvement in her pain. She still complains of some stiffness and inability to make a full fist. She denies any paresthesias. She denies any prior injury to this hand in the past. Past Medical History Past Medical History: No Reported History History of Any Multi-Drug Resistant Organisms: None Reported Past Surgical History: No Surgical Hx Reported Past Psychological History: No Psychological Hx Reported Smoking Status: Never smoker Past Alcohol Use History: None Reported Past Drug Use History: None Reported Medications and Allergies Home Medications Medication Instructions Recorded Confirmed Type Amoxic-Pot Clav 875-125Mg 1 tab PO Q12H 12/30/22 12/30/22 History [Augmentin 875-125] Cetirizine HCl [Zyrtec] 10 mg PO DAILY 12/30/22 12/30/22 History Ibuprofen 600 mg PO Q6H PRN #20 tab 12/30/22 12/30/22 Rx SUMAtriptan succinate [Imitrex] 25 mg PO BID PRN 12/30/22 12/30/22 History norethindrone-e.estradioL-iron 1 tab PO HS 12/30/22 12/30/22 History [Tamika 24 Fe 1 mg-20 Mcg Tablet] Allergies Allergy/AdvReac Type Severity Reaction Status Date / Time No Known Allergies Allergy Verified 12/30/22 11:22 Physical Examination Osteopathic Statement: *. No significant issues noted on an osteopathic structural exam other than those noted in the History and Physical/Consult. Results - Labs Labs: Abnormal Lab Results - Last 24 Hours (Table) 12/31/22 Range/Units 04:04 WBC 10.43 H (4.50-10.00) X 10*3/uL Neutrophils # 7.94 H (1.80-7.70) X 10*3/uL Microbiology - Last 24 Hours (Table) 12/30/22 09:48 Blood Culture - Preliminary Blood No Growth after 24 hours 12/30/22 09:48 Blood Culture - Preliminary Blood No Growth after 24 hours H & H 12/30/22 12/31/22 Range/Units 10:38 04:04 Hgb 14.4 13.7 (11.4-16.0) gm/dL Hct 41.3 42.0 (34.0-46.0) % Result Diagrams: 12/31/22 04:04 12/31/22 04:04 Assessment and Plan Assessment: Physical Exam: RUE: AIN/PIN/Radial/Ulnar/Median motor intact. Radial/Ulnar/Median SILT. 2+/4 Radial/Ulnar pulses palpated. 5/5 APB, 5/5 FDI. Negative Finkelsteins, negative CMC grind, negative Durkan's compression. Redness/ swelling and warmth present over dorsal hand. 2 puncture wounds located at the radial and ulnar portions of the metacarpal head, no direct puncture wound over the MCP joint of the middle finger. Passive MCP ROM 0-115 of all digits without pain. NTTP over volar palm/flexor tendon sheath. No fusiform swelling or pain with passive extension of the fingers. Able to make a partial fist with minimal pain. Assessment: 1.) Right hand cat bite with surrounding dorsal hand cellulitis. Plan: I was able to see and examine the patient myself. Currently there are no signs of abscess on physical exam or CT of the hand. She has no signs of pyogenic flexor tenosynovitis and the swelling/cellulitic changes are mainly located at the dorsal aspect of the hand and slowly improving. There are no signs of septic arthritis in the MCP joint. I recommend continued IV antibiotics over the next 24 hours. If she continues to respond well to antibiotics we discussed she can be discharged on oral antibiotic therapy and follow up in office in 7-10 days. The patient and who was at bedside during the patient encounter were agreeable with this plan of action. -Mayank Nicholson Orthopedic Hand/Upper Extremity Surgeon
[2022-12-31] MEDS: KETOROLAC 15 MG/ML 1 ML VIAL IVP SCH (19:15)
[2022-12-31] MEDS: NORETHINDRONE E ESTRADIOL IRON PO SCH (20:44)
--- NOTE | 2022-12-31 23:08 | P.CONS ---
History of Present Illness - Reason for Consult Consult date: 12/31/22 Cat bite to right hand Requesting physician: Vandana Avalos - Chief Complaint Right hand swelling and redness x one day - History of Present Illness Patient is a 42-year-old female with no significant past medical history presenting to the ER yesterday morning for evaluation of right hand pain swelling and redness patient's symptoms started around 6 in the morning and apparently the patient has been bitten by her cat the night before on the right hand patient noticed to have increasing swelling and redness on the dorsal aspect of the right hand extending to the right forearm and elbow area patient was describing the pain to be throbbing intensity is almost 7-8 out of 10 radiation with associated swelling redness no open wound or any drainage patient on presentation to the hospital was afebrile and no fever has been recorded subsequently patient did have white count of 13.5 with a left shift kidney function has been normal liver exams are normal lactic acid was 2.2 patient did have a x-ray of the hand prominent dorsal sided soft tissue swelling no acute bony abnormality patient was started on Unasyn infectious disease was consulted for further management of antibiotic therapy patient has been evaluated by orthopedics and CT of the head has been ordered which is currently pending Review of Systems Positive point has been mentioned in the HPI rest of the systems are negative Past Medical History Past Medical History: No Reported History History of Any Multi-Drug Resistant Organisms: None Reported Past Surgical History: No Surgical Hx Reported Past Psychological History: No Psychological Hx Reported Smoking Status: Never smoker Past Alcohol Use History: None Reported Past Drug Use History: None Reported Medications and Allergies Home Medications Medication Instructions Recorded Confirmed Type Amoxic-Pot Clav 875-125Mg 1 tab PO Q12H 12/30/22 12/30/22 History [Augmentin 875-125] Cetirizine HCl [Zyrtec] 10 mg PO DAILY 12/30/22 12/30/22 History Ibuprofen 600 mg PO Q6H PRN #20 tab 12/30/22 12/30/22 Rx SUMAtriptan succinate [Imitrex] 25 mg PO BID PRN 12/30/22 12/30/22 History norethindrone-e.estradioL-iron 1 tab PO HS 12/30/22 12/30/22 History [Tamika 24 Fe 1 mg-20 Mcg Tablet] Allergies Allergy/AdvReac Type Severity Reaction Status Date / Time No Known Allergies Allergy Verified 12/30/22 11:22 Physical Exam Vitals: Vital Signs Temp Pulse Pulse Resp BP BP Pulse Ox 12/31/22 06:46 98.5 F 66 16 111/71 97 12/31/22 01:39 16 12/31/22 00:46 98.2 F 73 16 106/65 98 12/30/22 19:25 75 18 140/80 98 12/30/22 14:32 83 16 141/81 97 Intake and Output 12/30/22 12/31/22 12/31/22 22:59 06:59 14:59 Intake Total 100 500 Balance 100 500 Intake: Intake, IV Titration 100 Amount Ampicillin-Sulbactam 3 gm 100 In Sodium Chloride 0.9% 100 ml @ 200 mls/hr IVPB Q6H [facility] Rx#:[id number] Oral 500 Other: Voiding Method Toilet Weight 64.864 kg GENERAL DESCRIPTION: Middle-aged female lying in bed, no distress. No tachypnea or accessory muscle of respiration use. HEENT: Shows Pallor , no scleral icterus. Oral mucous membrane is dry. NECK: Trachea central, no thyromegaly. LUNGS: Unlabored breathing. Clear to auscultation anteriorly. No wheeze or crackle. HEART: S1, S2, regular rate and rhythm. No loud murmur ABDOMEN: Soft, no tenderness , guarding or rigidity, no organomegaly EXTREMITIES: Right hand dorsum did have swelling and redness tender and warm to touch no open wound or drainage SKIN: No rash, no masses palpable. NEUROLOGICAL: The patient is awake, alert, oriented x3, mood and affect normal. 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 Current Visit: Yes Status: Acute Code(s): L03.90 - CELLULITIS, UNSPECIFIED; A28.0 - PASTEURELLOSIS; W55.01XA - BITTEN BY CAT, INITIAL ENCOUNTER SNOMED Code(s): 642368669 Plan: 1patient was in the hospital with right hand cat bite cellulitis in this patient refused swelling redness of the right hand with some extension to the dorsal aspect of the right hand in the elbow area likely representing lymphangitis and will need to cover for the polymicrobial maeve of the Mouth clinically not behaving as an abscess awaiting CT 2-patient to continue with Unasyn 3 g every 6 hours Patient and has multiple questions concerns were answered in layman term We will follow on clinical condition and cultures to further adjust medication if needed Thank you for this consultation we will follow the patient along with you Time with Patient: Greater than 30
[2023-01-01] MEDS: KETOROLAC 15 MG/ML 1 ML VIAL IVP SCH ×4 (00:48→18:14)
[2023-01-01] MEDS: AMPICILLIN-SULBACTAM 3 GM in SODIUM CHLORIDE 0.9% 100 ML IVPB SCH ×4 (00:50→21:06)
[2023-01-01 07:52] LABS: African American GFR (CKD) >90 (>60 ml/min/1.73 sqM); Anion Gap 6 mmol/L; Blood Urea Nitrogen 9 mg/dL (7-17); Calcium 8.6 mg/dL (8.4-10.2); Carbon Dioxide 27 mmol/L (22-30); Chloride 108 mmol/L (98-107); Glucose 94 mg/dL (74-99); Non-African American GFR(CKD) >90 (>60 ml/min/1.73 sqM); Potassium 4.1 mmol/L (3.5-5.1); Sodium 141 mmol/L (137-145)
[2023-01-01 07:55] LABS: Basophils % (A) 0 %; Eosinophils # (A) 0.1 k/uL (0-0.7); Eosinophils % (A) 2 %; HCT 39.8 % (34.0-46.0); HGB 13.3 gm/dL (11.4-16.0); Lymphocytes # (A) 1.5 k/uL (1.0-4.8); Lymphocytes % (A) 19 %; MCH 31.2 pg (25.0-35.0); MCHC 33.5 g/dL (31.0-37.0); MCV 93.2 fL (80.0-100.0); Monocytes # (A) 0.4 k/uL (0-1.0); Monocytes % (A) 5 %; Neutrophils # (A) 5.6 k/uL (1.3-7.7); Neutrophils % (A) 72 %; Platelet Count 185 k/uL (150-450); RBC 4.27 m/uL (3.80-5.40); RDW 12.1 % (11.5-15.5); WBC 7.8 k/uL (3.8-10.6)
[2023-01-01] MEDS: LORATADINE 10 MG TAB PO SCH (08:13)
[2023-01-01] MEDS: PANTOPRAZOLE 40 MG/10 ML VIAL IVP SCH (08:21)
--- NOTE | 2023-01-01 10:54 | PN ---
PROGRESS NOTE DATE OF SERVICE: 01/01/2023 SUBJECTIVE: This is a 42-year-old woman who was admitted with a cat bite and severe cellulitis, is being closely monitored. The swelling and pain are improving. Hand surgeon as well as Infectious Disease saw the patient. Cultures are negative so far. OBJECTIVE: VITAL SIGNS: Pulse is 69, blood pressure 103/69, respirations 17. CHEST: Clear to auscultation. CARDIOVASCULAR: S1, S2. ABDOMEN: Soft. EXTREMITIES: Right hand swelling and tenderness and some limitation of movements, which has much improved. LABORATORY DATA: Reviewed. ASSESSMENT: 1. Cat bite with acute severe cellulitis of the right hand. 2. Severe pain, improving. 3. Failure of outpatient treatment. 4. Elevated lactic acid, improved. RECOMMENDATIONS AND DISCUSSION: Recommend to continue current management and continue symptomatic treatment. Otherwise, continue with IV antibiotics. Closely follow with multiple consultants. Continue with pain management. Further recommendations to follow. MMODL / IJN: [id number] /
--- NOTE | 2023-01-01 14:17 | P.PN ---
Subjective Progress Note Date: 01/01/23 Principal diagnosis: cellulitis right hand Patient was seen at bedside this afternoon sitting up in chair currently on IV antibiotics. Patient feels that the swelling and redness in her right hand has been improving since yesterday. Patient says that infectious disease would like to keep her another day for IV antibiotics. Patient is hoping to go home soon. Patient says she does have a little bit of pain in between the second and third MCPJ on the right dorsum, however, overall the pain has been improving over the past couple days. Patient denies chest pain, fever, shortness breath, nausea, vomiting, change in vision, loss of bowel/bladder control Objective - Vital Signs Vital signs: Vital Signs Temp 98.1 F 01/01/23 06:33 Pulse 60 01/01/23 06:33 Resp 16 01/01/23 06:33 BP 114/73 01/01/23 06:33 Pulse Ox 98 01/01/23 06:33 FiO2 Intake & Output 12/31/22 01/01/23 01/01/23 18:59 06:59 18:59 Intake Total 240 500 0 Balance 240 500 0 Intake: Oral 240 500 0 Other: Voiding Method Toilet # Voids 1 1 - Exam AIN/PIN/Radial/Ulnar/Median motor intact. Radial/Ulnar/Median SILT. 2+/4 Radial/Ulnar pulses palpated. 5/5 APB, 5/5 FDI. Negative Finkelsteins, negative CMC grind, negative Durkan's compression. Redness/ swelling and warmth present over dorsal hand, improving. 2 puncture wounds located at the radial and ulnar portions of the metacarpal head, no direct puncture wound over the MCP joint of the middle finger. Passive MCP ROM 0-115 of all digits without pain. NTTP over volar palm/flexor tendon sheath. No fusiform swelling or pain with passive extension of the fingers. Able to make a partial fist with minimal pain. - Labs CBC & Chem 7: 01/01/23 06:01 01/01/23 06:01 Labs: Abnormal Lab Results - Last 24 Hours (Table) 01/01/23 Range/Units 06:01 Chloride 108 H (98-107) mmol/L Microbiology - Last 24 Hours (Table) 12/30/22 09:48 Blood Culture - Preliminary Blood No Growth after 48 hours 12/30/22 09:48 Blood Culture - Preliminary Blood No Growth after 48 hours Assessment and Plan Assessment: 1. Right hand cat bite with surrounding dorsal hand cellulitis Plan: 1. Right hand cat bite with surrounding dorsal hand cellulitis - CT right hand negative for any abscess/tendon rupture. Patient symptomatically seems to be improving. Erythema and swelling are decreasing in the dorsum of the right hand. WBC trending down Patient is currently being seen by medicine and infectious disease. Patient is on IV antibiotics currently. At this time we are not recommending any emergent/urgent orthopedic surgical intervention. Pain medication as needed. We do recommend patient to follow-up in the outpatient setting with Dr. Nicholson for further evaluation. At this time orthopedics is signing off. Please do not hesitate to contact us for any further questions. 2. Appreciate medical and infectious disease management 3. Pain management - Tylenol; Toradol; [place] 4. GI prophylaxis - Protonix 5. DVT ppx recs 6. PT/OT - WBAT 7. Appreciate consult Time with Patient: Less than 30
--- NOTE | 2023-01-01 14:48 | P.PN ---
Subjective Progress Note Date: 01/01/23 Principal diagnosis: Right hand cat bite cellulitis Patient is a 42-year-old female presenting to the hospital with right hand dorsum swelling and redness after cat bite, patient did have a CT of the right hand that was negative for any abscess and has been evaluated by the hand surgeon recommending no surgical intervention. On today's evaluation that is 01/01/2023, the patient denies having any fever or any chills right hand dorsum swelling redness has decreased still complaining of some swelling to the right forearm area but no redness no bone wound or any drainage no chest pain shortness of breath or cough and no diarrhea Objective - Vital Signs Vital signs: Vital Signs Temp 98.1 F 01/01/23 06:33 Pulse 60 01/01/23 06:33 Resp 16 01/01/23 06:33 BP 114/73 01/01/23 06:33 Pulse Ox 98 01/01/23 06:33 FiO2 Intake & Output 12/31/22 01/01/23 01/01/23 18:59 06:59 18:59 Intake Total 240 500 0 Balance 240 500 0 Intake: Oral 240 500 0 Other: Voiding Method Toilet # Voids 1 1 - Exam GENERAL DESCRIPTION: Middle-age female up in the chair in no distress RESPIRATORY SYSTEM: Unlabored breathing , clear to auscultation anteriorly HEART: S1 S2 regular rate and rhythm , EXTREMITIES: Right hand dorsum swelling redness has decreased no drainage - Labs CBC & Chem 7: 01/01/23 06:01 01/01/23 06:01 Labs: Abnormal Lab Results - Last 24 Hours (Table) 01/01/23 Range/Units 06:01 Chloride 108 H (98-107) mmol/L Microbiology - Last 24 Hours (Table) 12/30/22 09:48 Blood Culture - Preliminary Blood No Growth after 48 hours 12/30/22 09:48 Blood Culture - Preliminary Blood No Growth after 48 hours Assessment and Plan (1) Pasteurella cellulitis due to cat bite Current Visit: Yes Status: Acute Code(s): L03.90 - CELLULITIS, UNSPECIFIED; A28.0 - PASTEURELLOSIS; W55.01XA - BITTEN BY CAT, INITIAL ENCOUNTER SNOMED Code(s): 001103614 (2) Cat bite of right hand Current Visit: Yes Status: Acute Code(s): S61.451A - OPEN BITE OF RIGHT HAND, INITIAL ENCOUNTER; W55.01XA - BITTEN BY CAT, INITIAL ENCOUNTER SNOMED Code(s): 070711555 Plan: 1patient was in the hospital with right hand cat bite cellulitis in this patient refused swelling redness of the right hand with some extension to the d orsal aspect of the right hand in the elbow area likely representing lymphangitis and will need to cover for the polymicrobial maeve of the Mouth clinically not behaving as an abscess, CT was negative for any drainable abscess 2-patient seemed to have her clinical improvement and will continue with Unasyn 3 g every 6 hours for another 24-48 hours depending upon clinical response before transitioning her to oral antibiotic Time with Patient: Less than 30
[2023-01-01] MEDS: NORETHINDRONE E ESTRADIOL IRON PO SCH (20:30)
[2023-01-02] MEDS: KETOROLAC 15 MG/ML 1 ML VIAL IVP SCH ×3 (00:57→11:27)
[2023-01-02] MEDS: AMPICILLIN-SULBACTAM 3 GM in SODIUM CHLORIDE 0.9% 100 ML IVPB SCH ×3 (00:57→13:16)
[2023-01-02] MEDS: IBUPROFEN 400 MG TAB PO PRN (05:42)
[2023-01-02 07:55] VITALS: BP 110/63; TEMP 97.7
[2023-01-02] MEDS: LORATADINE 10 MG TAB PO SCH (08:52)
[2023-01-02] MEDS: PANTOPRAZOLE 40 MG/10 ML VIAL IVP SCH (09:03)
[2023-01-02 09:14] VITALS: PULSE 62; RESP 18
[2023-01-02 09:28] LABS: Basophils # (A) 0.03 X 10*3/uL (0.00-0.10); Basophils % (A) 0.5 %; Eosinophils # (A) 0.15 X 10*3/uL (0.04-0.35); Eosinophils % (A) 2.4 %; HCT 38.4 % (37.2-46.3); HGB 12.7 g/dL (12.0-15.0); Immature Grans, Automated 0.2 %; Lymphocytes # (A) 1.86 X 10*3/uL (0.90-5.00); Lymphocytes % (A) 30.3 %; MCH 30.9 pg (27.0-32.0); MCHC 33.1 g/dL (32.0-37.0); MCV 93.4 fL (80.0-97.0); Mean Platelet Volume 10.9 fL (9.5-12.2); Monocytes % (A) 9.8 %; NRBC Per 100 WBC 0 /100 WBCS (0.0-0.0); Neutrophils # (A) 3.48 X 10*3/uL (1.80-7.70); Neutrophils % (A) 56.8 %; Platelet Count 213 X 10*3/uL (140-440); RBC 4.11 X 10*6/uL (4.10-5.20); WBC 6.13 X 10*3/uL (4.50-10.00)
[2023-01-02 09:32] LABS: African American GFR (CKD) 105.4 (60.0-200.0); Anion Gap 10.9 mmol/L (10.00-18.00); BUN/Creat Ratio 11.13 Ratio (12.00-20.00); Blood Urea Nitrogen 8.9 mg/dL (9.0-27.0); Calcium 8.7 mg/dL (8.7-10.3); Carbon Dioxide 25.1 mmol/L (20.0-27.5); Non-African American GFR(CKD) 90.9 (60.0-200.0); Potassium 4.2 mmol/L (3.5-5.5)
--- NOTE | 2023-01-03 18:40 | P.PN ---
Subjective Progress Note Date: 01/02/23 Principal diagnosis: Right hand cat bite cellulitis Patient is a 42-year-old female presenting to the hospital with right hand dorsum swelling and redness after cat bite, patient did have a CT of the right hand that was negative for any abscess and has been evaluated by the hand surgeon recommending no surgical intervention. On today's evaluation that is 01/02/2023, the patient remains to be afebrile, the patient right hand dorsum swelling redness has decreased in intensity, which is having any chest pain shortness of breath or cough and no diarrhea Objective - Vital Signs Vital signs: Vital Signs Temp 97.7 F 01/02/23 07:54 Pulse 62 01/02/23 09:03 Resp 18 01/02/23 09:03 BP 110/63 01/02/23 07:54 Pulse Ox 99 01/02/23 07:54 FiO2 Intake & Output 01/01/23 01/02/23 01/02/23 18:59 06:59 18:59 Intake Total 500 240 Balance 500 240 Intake: Oral 500 240 Other: Voiding Method Toilet Toilet # Voids 1 1 - Exam GENERAL DESCRIPTION: Middle-age female up in the chair in no distress RESPIRATORY SYSTEM: Unlabored breathing , clear to auscultation anteriorly HEART: S1 S2 regular rate and rhythm , EXTREMITIES: Right hand dorsum swelling redness has decreased - Labs CBC & Chem 7: 01/02/23 05:48 01/02/23 05:48 Labs: Abnormal Lab Results - Last 24 Hours (Table) 01/02/23 Range/Units 05:48 BUN 8.9 L (9.0-27.0) mg/dL BUN/Creatinine Ratio 11.13 L (12.00-20.00) Ratio Microbiology - Last 24 Hours (Table) 12/30/22 09:48 Blood Culture - Preliminary Blood No Growth after 72 hours 12/30/22 09:48 Blood Culture - Preliminary Blood No Growth after 72 hours Assessment and Plan (1) Cat bite of right hand Status: Acute Code(s): S61.451A - OPEN BITE OF RIGHT HAND, INITIAL ENCOUNTER; W55.01XA - BITTEN BY CAT, INITIAL ENCOUNTER SNOMED Code(s): 487852949 (2) Pasteurella cellulitis due to cat bite Status: Acute Code(s): L03.90 - CELLULITIS, UNSPECIFIED; A28.0 - PASTEURELLOSIS; W55.01XA - BITTEN BY CAT, INITIAL ENCOUNTER SNOMED Code(s): 030133604 Plan: 1patient was in the hospital with right hand cat bite cellulitis in this patient refused swelling redness of the right hand with some extension to the dorsal aspect of the right hand in the elbow area likely representing lymphangitis and will need to cover for the polymicrobial maeve of the Mouth clinically not behaving as an abscess, CT of the hand was negative for any abscess 2-patient seemed to have shown clinical improvement with Unasyn 3 g every 6 hours, plan is to finish therapy with oral Augmentin 875 twice a day for 10 days and did close outpatient follow-up Time with Patient: Less than 30
--- NOTE | 2023-01-04 07:03 | P.PN ---
Subjective Progress Note Date: 01/02/23 Final diagnosis Cat bite with acute severe cellulitis of the right hand Severe pain, improving Failure of outpatient treatment Elevated lactic acid, improved Discharge disposition Patient is being discharged in a stable condition with guarded prognosis to home. Patient will follow-up with Dr. Christian in the outpatient setting upon discharge. Patient is to continue with oral Augmentin twice daily for the next 10 days and close outpatient follow-up with infectious disease Dr. Russo as scheduled. Total time taken is greater than 35 minutes. Hospital course This is a 42-year-old female who was recently admitted for right hand swelling secondary to a cat bite with cellulitis that had been traveling down her arm with failed outpatient therapy. Patient initially presented to the ER one day prior started on antibiotics. Worsening pain and swelling and was concerned and came back. Patient did not start antibiotics only was given a dose of antibiotics in the ER. Patient was evaluated by infectious disease along with orthopedics and not requiring any surgical intervention. Patient was maintained on IV antibiotics showing clinical improvement and will be continued on oral Augmentin twice daily for the next 10 days with close outpatient follow-up. Encourage the patient to elevate right extremity while at rest and monitor for any further signs of redness, drainage, increased swelling, or pain and instructed to follow-up with primary care provider this week. Please refer to other consultation notes for further HPI. Currently no reports of chest pain, shortness of breath, or palpitations. Patient is afebrile. No reports of nausea or vomiting and patient is tolerating diet. Patient will be discharged home today. Physical exam: Gen: This is a pleasant 42-year-old female who is awake, alert and oriented 3, well-developed, well-nourished HEENT: Head is atraumatic, normocephalic. Pupils equal, round. Sclerae is anicteric. NECK: Supple. No JVD. No lymphadenopathy. No thyromegaly. LUNGS: Clear to auscultation. No wheezes or rhonchi. No intercostal retractions. HEART: Regular rate and rhythm. No murmur. ABDOMEN: Soft. Bowel sounds are present. No masses. No tenderness. EXTREMITIES: No pedal edema. No calf tenderness. Right hand with significant improvement in swelling continues with some mild redness with no drainage noted NEUROLOGICAL: Patient is awake, alert and oriented x3. Cranial nerves 2 through 12 are grossly intact. Please refer to medication reconciliation sheet for a list of medications. The impression and plan of care has been dictated by Nunu Brooks, Nurse Practitioner as directed. Dr. Herman MD I have performed a history and examination and MDM of this patient, discussed the same with the dictator, and agree with the dictator's assessment and plan as written ,documented as a scribe. Based on total visit time, I have performed more than 50% of the visit. Objective - Vital Signs Vital signs: Vital Signs Temp 97.7 F 01/02/23 07:54 Pulse 62 01/02/23 09:03 Resp 18 01/02/23 09:03 BP 110/63 01/02/23 07:54 Pulse Ox 99 01/02/23 07:54 FiO2 Intake & Output 01/01/23 01/02/23 01/02/23 18:59 06:59 18:59 Intake Total 500 240 Balance 500 240 Intake: Oral 500 240 Other: Voiding Method Toilet Toilet # Voids 1 1 - Labs CBC & Chem 7: 01/02/23 05:48 01/02/23 05:48 Labs: Abnormal Lab Results - Last 24 Hours (Table) 01/02/23 Range/Units 05:48 BUN 8.9 L (9.0-27.0) mg/dL BUN/Creatinine Ratio 11.13 L (12.00-20.00) Ratio Microbiology - Last 24 Hours (Table) 12/30/22 09:48 Blood Culture - Preliminary Blood No Growth after 72 hours 12/30/22 09:48 Blood Culture - Preliminary Blood No Growth after 72 hours
== END 2023-01-02 14:34 | disposition home or self-care (01) | DRG 603 ==
LOC: EC 09:17 → 6NMEDSUR 14:55 → OBSVTOIN 01-01 10:31
PROVIDERS: ADMIT Hospitalist; ATTEND Hospitalist
DX: L03.113 Cellulitis of right upper limb (principal); A28.0 Pasteurellosis; S61.451A Open bite of right hand, initial encounter; B96.89 Other specified bacterial agents as the cause of diseases classified elsewhere; W55.01XA Bitten by cat, initial encounter; Z79.899 Other long term (current) drug therapy
CPT/HCPCS: 36415; 80048; 80053; 83605; 85025; 85652; 86140; 87040; 96361; 96365; 96366; 96375; 99284

== ENCOUNTER → 2023-05-26 | Outpatient (CLI) | payer BC ==
--- NOTE | 2023-05-27 10:45 | MM ---
Reason for Exam: Screening (asymptomatic). Last screening mammogram was performed 12 month(s) ago. Patient History: Menarche at age 10. First Full-Term at age 26. Currently using Hormonal Contraceptives, for 12 years. Maternal grandmother had breast cancer, age 82. Mother had breast cancer, age 54. Risk Values: Maya 5 year model risk: 1.4%. NCI Lifetime model risk: 20.1%. Prior Study Comparison: 10/24/2016 Bilateral Screening Mammogram, [facility]. 05/22/2021 Bilateral Screening Mammogram, [facility]. 05/23/2022 Bilateral MG 3D screening mammo w/cad, [facility]. Tissue Density: The breast tissue is heterogeneously dense. This may lower the sensitivity of mammography. Findings: Analyzed By CAD. There is no suspicious group of microcalcifications or new suspicious mass in either breast. Overall Assessment: Negative, BI-RAD 1 Management: Screening Mammogram of both breasts in [address] [facility] will attempt to contact patient to return for supplemental views and ultrasound if indicated. Patient should continue monthly self-breast exams. A clinical breast exam by your physician is recommended on an annual basis. This exam should not preclude additional follow-up of suspicious palpable abnormalities. Note on Maya scores and lifetime risk: 1. A Maya score greater than 3% is considered moderate risk. If this is the case, consider specialist referral to assess eligibility for a risk reducing agent. 2. If overall lifetime risk for the development of breast cancer is 20% or higher, the patient may qualify for future screening with alternating mammogram and breast MRI. Electronically signed and approved by: Ta Jefferson DO
== END | disposition home or self-care (01) ==
LOC: RADMAMWWP 09:44
PROVIDERS: ATTEND Obstetrics & Gynecology
DX: Z12.31 Encounter for screening mammogram for malignant neoplasm of breast (principal); Z80.3 Family history of malignant neoplasm of breast
CPT/HCPCS: 77063; 77067

== ENCOUNTER → 2024-05-27 | Outpatient (CLI) | payer BC ==
--- NOTE | 2024-06-02 07:46 | MM ---
Reason for Exam: Screening (asymptomatic). Last screening mammogram was performed 12 month(s) ago. Patient History: Menarche at age 10. First Full-Term at age 26. Patient has history of breast feeding. Currently using Hormonal Contraceptives, for 12 years. Paternal grandmother had breast cancer, age 82. Mother had breast cancer, age 54. Risk Values: Maya 5 year model risk: 1.5%. NCI Lifetime model risk: 19.9%. Prior Study Comparison: 05/22/2021 Bilateral Screening Mammogram, [facility]. 05/23/2022 Bilateral MG 3D screening mammo w/cad, [facility]. 05/26/2023 Bilateral MG 3D screening mammo w/cad, [facility]. Tissue Density: There are scattered areas of fibroglandular density. Findings: Analyzed By CAD. Right breast: Area of concern correlates with a focal asymmetry 12.6 cm from the nipple on the CC view 7.4 cm from the nipple on MLO view posterior depth on both views. Left breast: There is no suspicious group of microcalcifications or new suspicious mass. Overall Assessment: Incomplete: need additional imaging evaluation, BI-RAD 0 Management: Diagnostic Mammogram of the right breast. Diagnostic Breast Ultrasound of the right breast. [facility] will attempt to contact patient to return for supplemental views and ultrasound if indicated. Patient should continue monthly self-breast exams. A clinical breast exam by your physician is recommended on an annual basis. This exam should not preclude additional follow-up of suspicious palpable abnormalities. Note on Maya scores and lifetime risk: 1. A Maya score greater than 3% is considered moderate risk. If this is the case, consider specialist referral to assess eligibility for a risk reducing agent. 2. If overall lifetime risk for the development of breast cancer is 20% or higher, the patient may qualify for future screening with alternating mammogram and breast MRI. Electronically signed and approved by: Ta Jefferson DO
== END | disposition home or self-care (01) ==
LOC: RADMAMWWP 10:17
PROVIDERS: ATTEND Obstetrics & Gynecology
DX: Z12.31 Encounter for screening mammogram for malignant neoplasm of breast
CPT/HCPCS: 77063; 77067

== ENCOUNTER → 2024-06-11 | Outpatient (CLI) | payer BC ==
--- NOTE | 2024-06-11 07:43 | MM ---
Reason for Exam: Additional evaluation requested from abnormal screening. Last screening mammogram was performed less than 1 month ago. Patient History: Menarche at age 10. First Full-Term at age 26. Patient has history of breast feeding. Currently using Hormonal Contraceptives, for 12 years. Paternal grandmother had breast cancer, age 82. Mother had breast cancer, age 54. Risk Values: Maya 5 year model risk: 1.5%. NCI Lifetime model risk: 19.9%. Prior Study Comparison: 05/22/2021 Bilateral Screening Mammogram, [facility]. 05/23/2022 Bilateral MG 3D screening mammo w/cad, [facility]. 05/26/2023 Bilateral MG 3D screening mammo w/cad, [facility]. Tissue Density: Right: The breasts are heterogeneously dense, which may obscure small masses. Findings: Analyzed By CAD. Persistent asymmetric density upper outer right breast approximately 7 cm measuring 1 cm. Ultrasound is recommended. Overall Assessment: Incomplete: need additional imaging evaluation, BI-RAD 0 Management: Diagnostic Breast Ultrasound of the right breast. . Results were given to the patient verbally at the time of exam. Patient should continue monthly self-breast exams. A clinical breast exam by your physician is recommended on an annual basis. This exam should not preclude additional follow-up of suspicious palpable abnormalities. Note on Maya scores and lifetime risk: 1. A Maya score greater than 3% is considered moderate risk. If this is the case, consider specialist referral to assess eligibility for a risk reducing agent. 2. If overall lifetime risk for the development of breast cancer is 20% or higher, the patient may qualify for future screening with alternating mammogram and breast MRI. Electronically signed and approved by: Osmani Melvin M.D. Radiologis
--- NOTE | 2024-06-11 08:00 | USB ---
Reason for Exam: Additional evaluation requested from abnormal screening. Patient History: Menarche at age 10. First Full-Term at age 26. Patient has history of breast feeding. Currently using Hormonal Contraceptives, for 12 years. Paternal grandmother had breast cancer, age 82. Mother had breast cancer, age 54. Risk Values: Maya 5 year model risk: 1.5%. NCI Lifetime model risk: 19.9%. Technique: Method: Targeted. Prior Study Comparison: 05/23/2022 Bilateral MG 3D screening mammo w/cad, [facility]. 05/26/2023 Bilateral MG 3D screening mammo w/cad, [facility]. 05/27/2024 Bilateral MG 3D screening mammo w/cad, [facility]. Findings: The upper outer quadrant of the right breast, the axilla of the right breast and the retroareolar of the right breast were scanned. No solid or cystic masses are identified. Given asymmetric density upper outer right on mammography breast MRI is recommended.. Overall Assessment: Incomplete: need additional imaging evaluation, BI-RAD 0 Management: Diagnostic Breast MRI of both breasts. A clinical breast exam by your physician is recommended on an annual basis and results should be correlated with mammographic findings. This exam should not preclude additional follow-up of suspicious palpable abnormalities. Results were given to the patient verbally at the time of exam. Electronically signed and approved by: Osmani Melvin M.D. Radiologis
== END | disposition home or self-care (01) ==
LOC: RADMAMWWP 07:06
PROVIDERS: ATTEND Obstetrics & Gynecology
DX: R92.8 Other abnormal and inconclusive findings on diagnostic imaging of breast
CPT/HCPCS: 77061; 77065